=== PATIENT | female | born 2000 | race Caucasian/White ===

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

== ENCOUNTER 2022-02-20 10:55 | Outpatient (RCR) | payer OTHER, SELFPAY ==
[2022-02-20 11:13] VITALS: BMI 18.9
== END 2022-05-08 11:45 | disposition home or self-care (01) ==
LOC: ANHDMC 10:55
PROVIDERS: PCP Nurse Practitioner; Referring Provider Nurse Practitioner; Visit Provider Nurse Practitioner
DX: R63.4 Abnormal weight loss (principal); Z71.3 Dietary counseling and surveillance
CPT/HCPCS: 97802

== ENCOUNTER 2023-06-14 11:18 | Outpatient (CLI) | payer OTHER, SELFPAY ==
--- NOTE | ~2023-06-14 | US_ITS ---
EXAMINATION: US transvaginal DATE: 06/14/2023 11:39 INDICATION: Pelvic pain TECHNIQUE: Multiple endovaginal sonographic images of the pelvis were obtained. COMPARISON: None. FINDINGS: The retroverted uterus measures 5.7 x 3.2 x 4.2 cm. The endometrial complex measures 7 mm. The right ovary measures 2.4 x 2.9 x 1.7 cm. There are multiple tiny follicles in the right ovary. Th e left ovary measures 2.1 x 2.0 x 1.4 cm. There is normal vascular flow in the ovaries. There is a sm all amount of likely physiologic free fluid in the pelvis. IMPRESSION: 1. No sonographic correlate for the patient's symptoms. Reviewed, dictated and finalized at location F.
== END 2023-06-14 11:19 ==
LOC: MICIMG 11:19
PROVIDERS: PCP Nurse Practitioner; Visit Provider Nurse Practitioner
DX: R10.2 Pelvic and perineal pain (principal)
CPT/HCPCS: 76830

== ENCOUNTER 2023-10-26 11:37 | Emergency (ER) | payer OTHER, SELFPAY ==
[2023-10-26 12:02] VITALS: BP 111/68; PULSE 105; RESP 18; TEMP 36.8; O2SAT 99
[2023-10-26 12:38] LABS: Appearance Urine Cloudy (Clear); Bacteria Urine 4+ /hpf; Bilirubin Urine Negative (Negative); Blood Urine Trace (Negative); Color Urine Dark Yellow (Yellow); Glucose Urine UA Negative (Negative); Ketones Urine 3+ mg/dL (Negative); Leukocyte Esterase Ur 1+ LEU/UL (Negative); Nitrate Urine Positive (Negative); Non Pathogenic Casts 0-2; Protein Urine 1+ mg/dL (Negative); RBC Urine 0-2 /hpf (0-2); Specific Grav Ur 1.025 (1.001-1.035); Squamous Epithelial Cell Urine Many /hpf (Few); WBC Urine 21-50 /hpf
[2023-10-26 12:42] LABS: Basophils Absolute Auto 0.1 K/mm3 (0.0-0.1); Basophils Percent Auto 0.7 % (0.2-1.2); Eosinophils Percent Auto 0.5 % (0-4.4); Hematocrit 38.6 % (37.0-47.0); Hemoglobin 12.4 g/dL (12.0-15.0); Immature Granulocyte Absolute 0.04 K/mm3 (0.00-0.031); Immature Granulocyte Percent A 0.5 % (0-0.5); Lymphocytes Absolute Auto 1.09 K/mm3 (0.9-3.2); Lymphocytes Percent Auto 12.4 % (18.3-44.2); Mean Corpuscular HGB Conc 32.1 g/dl (32-36); Mean Corpuscular Hemoglobin 27.1 pg (26-34); Mean Corpuscular Volume 84.3 fl (80-100); Mean Platelet Volume 9.7 fl (7.4-10.4); Monocytes Absolute Auto 1.1 K/mm3 (0.1-0.6); Monocytes Percent Auto 12.6 % (2.6-8.5); Neutrophils Absolute Auto 6.5 K/mm3 (1.3-6.7); Neutrophils Percent Auto 73.3 % (45.5-73.1); Platelet Count Result 249 k/mm3 (150-375); Red Blood Count 4.58 M/mm3 (4.2-5.4); Red Cell Distribution Width 11.9 % (11.5-14.5); White Blood Count 8.8 K/mm3 (4.5-10.0)
[2023-10-26 12:44] LABS: Add Urine Microscopic? YES; Alanine Aminotransferase 10 U/L (6-35); Albumin Level 4.7 g/dL (3.5-5.1); Alkaline Phosphatase 66 U/L (38-126); Anion Gap 11 mmol/L (8-16); Aspartate Amino Transferase 17 U/L (14-36); Bilirubin,Total 1.3 mg/dL (0.2-1.3); Blood Urea Nitrogen 9 mg/dL (7-17); Calcium 9.3 mg/dL (8.4-10.2); Carbon Dioxide 24 mmol/L (22-30); Chloride 102 mmol/L (98-107); Estimated CRCL calculation 118 ml/min; Estimated Glomerular Filt Rate > 60; Glucose 93 mg/dL (65-110); Lipase 40 U/L (23-300); Potassium 3.9 mmol/L (3.4-5.0); Sodium 137 mmol/L (137-145)
[2023-10-26 15:06] LABS: Appearance Urine Cloudy (Clear); Bacteria Urine 3+ /hpf; Bilirubin Urine 2+ (Negative); Blood Urine Negative (Negative); Color Urine Dark Yellow (Yellow); Glucose Urine UA Negative (Negative); Ketones Urine 4+ mg/dL (Negative); Leukocyte Esterase Ur 1+ LEU/UL (Negative); Nitrate Urine Negative (Negative); Non Pathogenic Casts 0-2; Protein Urine 1+ mg/dL (Negative); RBC Urine 0-2 /hpf (0-2); Specific Grav Ur 1.032 (1.001-1.035); Squamous Epithelial Cell Urine Many /hpf (Few); WBC Urine 51-100 /hpf; pH Urine 5.5 (5.0-9.0)
[2023-10-26 15:08] LABS: Add Urine Microscopic? YES
--- NOTE | 2023-10-26 15:54 | ED.ABDPAIN ---
HPI - Abdominal Pain General Chief Complaint: Abdominal Pain Stated Complaint: right side pain Time Seen by Provider: 10/26/23 14:25 History of Present Illness HPI narrative: Patient is a 23-year-old female presenting with abdominal pain. Patient states the last several days she has had some right-sided abdominal pain that goes into her right flank. States that it started with pain in her right flank. States that she was diagnosed with a UTI a couple of weeks ago but she did not take the antibiotics because it made her nauseous. States that she had a fever of 101 several days ago and then yesterday had a fever of 102. States that she has had no appetite but no vomiting. Denies diarrhea or constipation, vaginal bleeding or discharge, chest pain, cough, shortness of breath. Related Data Allergies Allergy/AdvReac Type Severity Reaction Status Date / Time lactose Allergy Other Verified 10/26/23 14:16 Review of Systems Review of Systems: All systems reviewed & are unremarkable except as noted in HPI and below PMFSH Past Medical History Medical History Hernia, paraesophageal Nausea No active medical problems Surgical History Surgical History Hx of colonoscopy Hx of esophagogastroduodenoscopy Hx of tonsillectomy Hx of wisdom tooth extraction Family History Family History Grandparent Diabetes mellitus Father No problems noted. Mother No problems noted. Social History Social History Smoking status: Never smoker Alcohol intake: current Drinks per week: 4 Substance use: never Substance use type: does not use Living arrangements: with family Spiritual care concerns: No Exam Narrative: GENERAL: Well-appearing, in no acute distress HEAD: Normocephalic, atraumatic. EYES: PERRLA and EOMI. ENT: Nares clear, no rhinorrhea or epistaxis. Mucous membranes moist. NECK: Supple. CHEST: Clear to auscultation. No respiratory distress. HEART: Regular rate and rhythm. No murmur heard ABDOMEN: Soft, nontender, nondistended EXTREMITIES: Normal range of motion. SKIN: Warm, dry, no rash. NEURO: Alert and oriented x3. PSYCH: Normal mood and affect. Course Vital Signs Vital signs: Vital Signs Temperature 98.2 F 10/26/23 12:02 Pulse Rate 105 H 10/26/23 12:02 Respiratory Rate 18 10/26/23 12:02 Blood Pressure 111/68 10/26/23 12:02 Pulse Oximetry 99 10/26/23 12:02 Temperature 98.2 F 10/26/23 12:02 Pulse Rate 105 H 10/26/23 12:02 Respiratory Rate 18 10/26/23 12:02 Blood Pressure 111/68 10/26/23 12:02 Pulse Oximetry 99 10/26/23 12:02 MDM - Abdominal Pain MDM Narrative Medical decision making narrative: 23-year-old female presenting with abdominal pain. Vitals stable. Exam is unremarkable. Her abdomen is soft and benign. Blood work is unremarkable. UA is contaminated but concerning for infection. States that she was diagnosed with UTI several weeks ago and she never took the antibiotics as they made her nauseous. It appears that she had been prescribed Bactrim. Will start her on Keflex and advised that she complete the antibiotics as prescribed. She has nausea medicine at home that she can take. Advised PCP follow-up. Appropriate return precautions given. Discharged in stable condition. Differential Diagnosis Differential diagnosis: Likely abdominal pain and other ( UTI, flank pain) Medical Records Attestation: I reviewed the patient's medical records. Lab Data Attestation: I reviewed the patient's lab results. 10/26/23 12:21 10/26/23 12:21 Labs: Lab Results 10/26/23 10/26/23 Range/Units 12:21 14:53 WBC 8.8 (4.5-10.0) K/mm3 RBC 4.58 (4.2-5.4) M/mm3 Hgb 12.4
== END 2023-10-26 16:25 | disposition home or self-care (01) ==
PROVIDERS: Emergency Medicine; Emergency Provider Emergency Medicine; PCP Nurse Practitioner
DX: N39.0 Urinary tract infection, site not specified (principal)
CPT/HCPCS: 36415; 80053; 81001; 81025; 83690; 85025; 87077; 87086; 87186; 99283

== ENCOUNTER 2025-04-30 11:00 | Emergency (ER) | payer OTHER, SELFPAY ==
--- NOTE | ~2025-04-30 | XR_ITS ---
HISTORY: pain with trauma COMPARISON: None TECHNIQUE: 3 views of the left foot were performed FINDINGS: No acute fracture or dislocation is appreciated. No significant degenerative disease is noted. The base of the fifth metatarsal is intact. No calcaneal spur is noted. No significant soft tissue swelling is present. IMPRESSION: Unremarkable radiographic evaluation of the left foot, as detailed above. Reviewed, dictated and finalized at location A.
--- OUTSIDE RECORDS SUMMARY | 2025-04-30 11:03 | XMS_ITS | Encounter Summary ---
Author Organization [facility] Address [address] [place] [address] Care Team Providers Care Dry Can Tender Name Role Phone Sue Boyer NP Primary Care Provider +1 [phone] Encounter Details Date Type Department Care Team (Latest Contact Info) Description 09/09/2024 Oramed [employer] Message Enc [facility] Medical [facility]ty [facility] [place] [address] [place] [address] Sue Boyer NP [address] [place] [address] blood test results Social History Tobacco Use Types Packs/Day Years Used Date Smoking Tobacco: Never Passive Smoke Exposure: Never Smokeless Tobacco: Never Alcohol Use Standard Drinks/Week Comments Not Currently 0 (1 standard drink = 0.6 oz pur e alcohol) PHQ-2 Answer Date Recorded Patient Health Questionnaire-2 Score 4 09/08/2024 Comments No Sex and Gender Information Value Date Recorded Sex Assigned at Female 11/09/2024 9:42 AM MANUAL MACHINIST Legal Sex Female 7:30 PM CDT Gender Identity Female 11/22/2024 10:25 AM MANUAL MACHINIST Sexual Orientation Straight 11/22/2024 10 :25 AM MANUAL MACHINIST documented as of this encounter Plan of Treatment Upcoming Encounters Date Type Department Care Team (Late st Contact Info) Description 07/04/2025 10:20 AM CDT Office Visit [facility] Medical [facility] [place] [address] [place] [address] Sue Boyer NP [address] [place] [address] documented as of this encounter Visit Diagnoses Not on filedocumented in this encounter Additional Health Concerns Assessment Noted Time PHQ-9 Depression Total Score: 17 024 11:07 AM MANUAL MACHINIST documented as of this encounter Care Teams Dry Can Tender Relationship Specialty Start Date End Date Sue Boyer, LANDSCAPING SUPERVISOR [address] [facility] [address] [place] [address] PCP - General NURSE PRACTITIONER 05/10/24 documented as of this encounter
--- OUTSIDE RECORDS SUMMARY | 2025-04-30 11:03 | XMS_ITS | Encounter Summary ---
Author Organization [facility] Address [address] [place] [address] Care Team Providers Care Photographic Enlarger Operator Name Role Phone Sue Boyer FACILITIES OPERATIONS TECHNICIAN Primary Care Provider +1 [phone] Encounter Details Date Type Department Care Team (Late st Contact Info) Description 11/15/2024 MyCNarrativet Message Enc [facility] [address] [place], [place] [id number] Lexie Baca, ANP-BC [facility]. [facility] [address] [place], [place] [id number] Test results Social History Tobacco Use Types Packs/Day Years Used Date Smoking Tobacco: Never Passive Smoke Exposure: Never Smokeless Tobacco: Never Alcohol Use Standard Drinks/Week Comments Not Currently 0 (1 standard drink = 0.6 oz pur e alcohol) PHQ-2 Answer Date Recorded Patient Health Questionnaire-2 Score 6 11/08/2024 Comments No Sex and Gender Information Value Date Recorded Sex Assigned at Female 11/09/2024 9:42 AM SERVICE TECH/WELDER Legal Sex Female 7:30 PM CDT Gender Identity Female 11/22/2024 10:25 AM SERVICE TECH/WELDER Sexual Orientation Straight 11/22/2024 10 :25 AM SERVICE TECH/WELDER documented as of this encounter Plan of Treatment Upcoming Encounters Date Type Department Care Team (Late st Contact Info) Description 07/04/2025 10:20 AM CDT Office Visit [facility] Medical [facility] Multispecialty [facility] [place] - [address] [place], [place] [id number] Sue Boyer, FACILITIES OPERATIONS TECHNICIAN [address] [facility] [address] [place] [address] documented as of this encounter Visit Diagnoses Not on filedocumented in this encounter Additional Health Concerns Assessment Noted Time PHQ-9 Depression Total Score: 22 025 12:03 PM SERVICE TECH/WELDER documented as of this encounter Care Teams Photographic Enlarger Operator Relationship Specialty Start Date End Date Sue Boyer, FACILITIES OPERATIONS TECHNICIAN [address] [facility] [address] [place] [address] PCP - General NURSE PRACTITIONER 05/10/24 documented as of this encounter
--- OUTSIDE RECORDS SUMMARY | 2025-04-30 11:03 | XMS_ITS | Encounter Summary ---
Author Organization [facility] Address [address] [place] [address] Care Team Providers Care Twisting Department End Finder Name Role Phone Sue Boyer BRACER Primary Care Provider +1- [phone] Encounter Details Date Type Department Care Team (Late st Contact Info) Description 09/29/2024 MyChart Message Enc [facility] Group Mult[facility]pecialty Care - [place] [address] [place] [address] Sue Boyer BRACER [address] [place] [address] glucometer Social History Tobacco Use Types Packs/Day Years Used Date Smoking Tobacco: Never Passive Smoke Exposure: Never Smokeless Tobacco: Never Alcohol Use Standard Drinks/Week Comments Not Currently 0 (1 standard drink = 0.6 oz pur e alcohol) PHQ-2 Answer Date Recorded Patient Health Questionnaire-2 Score 4 09/08/2024 Comments No Sex and Gender Information Value Date Recorded Sex Assigned at Female 11/09/2024 9:42 AM ELECTRICAL LINE WORKER Legal Sex Female 7:30 PM CDT Gender Identity Female 11/22/2024 10:25 AM ELECTRICAL LINE WORKER Sexual Orientation Straight 11/22/2024 10 :25 AM ELECTRICAL LINE WORKER documented as of this encounter Progress Notes * Aleyda Hensley MA - 09/30/2024 7:24 AM CST yes TRICAL LINE WORKER documented in this encounter Plan of Treatment Upcoming Encounters Date Type Department Care Team (Late st Contact Info) Description 07/04/2025 10:20 AM CDT Office Visit [facility] Medical Group [facility] - [place] [address] [place] [address] Sue Boyer, BRACER [address] [place] [address] documented as of this encounter Visit Diagnoses Not on filedocumented in this encounter Additional Health Concerns Assessment Noted Time PHQ-9 Depression Total Score: 17 024 11:07 AM ELECTRICAL LINE WORKER documented as of this encounter Care Teams Twisting Department End Finder Relationship Specialty Start Date End Date Sue Boyer BRACER [address] [place] [address] PCP - General NURSE PRACTITIONER 05/10/24 documented as of this encounter
--- OUTSIDE RECORDS SUMMARY | 2025-04-30 11:03 | XMS_ITS | Clinical Summary ---
Author Organization [facility] Address [address] [place] [address] Care Team Providers Care Manager Print Name Role Phone Sue Boyer NP Primary Care Provider +1- [phone] Allergies Active Allergy Reactions Criticality Noted Date Comments Lactose Other (See comments) Low 08/05/2019 Bloody stools Medications promethazine (PHENERGAN) 25 mg tablet 1 Active norethindrone-e.es tradioL-iron (Lo Loestrin Fe) 1 mg-10 mcg (24)/10 mcg (2) tablet Lo Loestrin Fe 1 mg-10 mcg (24)/10 mcg (2) tablet TAKE 1 TABLET BY MOUTH EVERY DAY Active calcium carbonate (TUMS) 500 mg (200 mg elemental) chewable tablet Take 1 tablet by mouth daily Active cyanocobalamin (Vitamin B-12) 1,000 mcg/mL injection INJECT 1 ML IN THE MUSCLE EVERY 30 DAYS 4 Active albuterol HFA (PROVENTIL HFA,VENTOLIN HFA,PROAIR HFA) 90 mcg/actuation inhalerIndications :Chest tightness Inhale 2 puffs every 6 (six) hours as needed for wheezing Cough or chest tightness 1 each 4 Active ondansetron ODT (ZOFRAN-ODT) 4 mg disintegrating tablet Take 1 tablet (4 mg total) by mouth every 6 (six) hours as needed 4 Active hydrOXYzine (ATARAX) 50 mg tablet Take 1 tablet (50 mg total) by mouth every 8 (eight) hours as needed for anxiety 90 tablet 5 Active mirtazapine (REMERON) 15 mg tablet Take 1 tablet (15 mg total) by mouth nightly 30 tablet 5 05/21/20 25 Active Active Problems Problem Noted Date Diagnosed Date Current moderate episode of major depressive disorder without prior episode 02/11/2025 Mild restricting type anorexia nervosa 5 Iron deficiency anemia, unspecified 04/17/2023 Routine sports physical exam 06/07/2021 Assessment & Plan (06/07/2021 9:31 AM CDT): Patient is cleared to participate in sports. Copy of physical examination form retained for our records and one given to the patient. Recommendations, follow-up reviewed with patient. Patient verbalized understanding. Patient advised to return for follow-up as needed. If you have any questions about your care, call the [facility] at [phone] during business hours. 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 [address] [place] [address] [address] [place] [address] Michelle Walls MD Mild restricting type anorexia nervosa (Primary Dx); Current moderate episode of major depressive disorder without prior episode (HCC) 03/24/2025 8:30 AM CDT Office Visit [facility] [address] [place] [id number] Michelle Walls MD Mild restricting type anorexia nervosa (Primary Dx); Unspecified mood disorder 02/11/2025 2:00 PM CDT Office Visit [facility] [address] [facility] [address] [place] [phone] Michelle Walls MD Mild restricting type anorexia nervosa (Primary Dx); Unspecified mood disorder from Last 3 Months Surgical History Surgery Date Site/Laterality Comments TONSILLECTOMY age 17 years UPPER GASTROINTESTINAL ENDOSCOPY COLONOSCOPY TONSILLECTOMY AND ADENOIDECTOMY Medical History Medical History Date Comments Hematochezia Abdominal pain, lower 04/14/2019 Diarrhea GERD (gastroesophageal reflux disease) Family History Medical History Relation Name Comments Hypothyroidism Maternal Grandfather Hypothyroidism Maternal Grandmother Celiac disease Mother Colon cancer Mother Hypothyroidism Mother Sinusitis Mother Allergic rhinitis Mother's Brother Relation Name Status Comments Maternal Grandfather Maternal Grandmother Mother Mother's Brother Social History Tobacco Use Types Packs/Day Years Used Date Smoking Tobacco: Never Smokeless Tobacco: Never Alcohol Use Standard Drinks/Week Comments Not Currently 0 (1 standard drink = 0.6 oz pur e alcohol) AUDIT-C Answer Date Recorded Q1: How often do you have a drink containing alc ohol? Never 06/07/2021 Q2: How many drinks containi ng alcohol do you have on a typical day when you are drinking? 1 or 2 06/07/2021 Q3: How often do you have six or more drinks on one occasion? Never 06/07/2021 Comments No Sex and Gender Information Value Date Recorded Sex Assigned at Not on file Legal Sex Female 9:36 AM INSET CUTTER Gender Identity Not on file Sexual Orientation Not on file History Length Weight Head Circum Date/Time Gestation Age D/C Weight APGARs Delivery Method Feeding 7 lb 2 oz (3.232 kg) 2002 Term, similac Obstetrics History Last Filed Vital Signs Vital Sign Reading Time Taken Comments Blood Pressure 127/90 04/21/2025 11:37 AM CDT Pulse 82 03/24/2025 9:02 AM CDT Temperature 37.4 C (99.3 F) 08/31/2024 12:45 PM INSET CUTTER Respiratory Rate 15 08/31/2024 12:45 PM INSET CUTTER Oxygen Saturation 99% 08/31/2024 12:45 PM INSET CUTTER Inhaled Oxygen Concentration - - Weight 56 kg (123 lb 6.4 oz) 04/21/2025 11:37 AM CDT Height 165.1 cm (5' 5) 04/21/2025 11:37 AM CDT Body Mass Index 20.53 04/21/2025 11:37 AM CDT Plan of Treatment Health Maintenance Due Date Last Done Comments Cervical Cancer Screening 2002 Depression Screening 2002 Hepatitis C Screening 2002 DTaP/Tdap/Td Vaccine (1 - Tdap) 2013 Varicella Vaccines (1 of 2 - 13+ 2-dose series) 2014 HPV Vaccines (1 - 3-dose series) 2017 Meningococcal B Vaccine (1 of 2 - Standard) 2018 Hepatitis B Screening 02/15/2020 Regular Well Visit/Exam 18-64 02/15/2020 Chlamydia and Gonorrhea (GC/CT) Screening 04/13/2020 04/13/2019 Pneumococcal vaccine <65 (1 of 2 - PCV) 2021 Zoster Vaccine (1 of 2) 2021 Influenza Vaccine (#1) 2025 Procedures Procedure Name Priority Date/Time Associated Diagnosis Comments N. GONORRHOEAE/C. TRACHOMATIS AMPLIFICATION TEST Routine 04/13/2019 9:23 PM CDT from Last 3 Months or Most Recently Relevant to Health Maintenance Results * N. gonorrhoeae/C. trachomatis amplification test Urine (04/13/2019 9:23 PM CDT) Report Final Report: Negative for: Chlamydia trachomatis rRNA Negative for: Neisseria gonorrhoeae rRNA [facility] Comment:Testing performed by : [facility], [address] [facility], [place]., [address] Urine 04/13/2019 9:23 PM CDT 04/13/2019 10:59 PM CDT Narrative [facility] - 04/14/2019 12:58 PM CDT Testing performed by the [employer] APTIMA Combo 2 Assay. This nucleic acid amplification test (NAAT) detects ribosomal RNA (rRNA) from Chlamydia trachomatis and Neisseria gonorrhoeae using target capture,and Rn Endoscopy-Mediated Amplification (TMA). This test is approved by the [place] Food and Drug Administration for endocervical, vaginal, and male urethral swab specimens, in addition to male and female urine specimens. The performance characteristics for these specimen types have been verified by the [facility].The performance characteristics of this assay for pharyngeal and rectal specimens collected from cervical swab collection devices have been validated and verified by the [facility]. Verification studies support a lack of cross reactivity with other Neisseria species considered normal oropharyngeal bacterial cierra. Rectal swab specimens containing excess stool may be inhibitory and result in false negatives for Chlamydia trachomatis or Neisseria gonorrhoeae. The performance characteristics of this test have not been evaluated in women or individuals less than 16 years of age. Jill Rebolledo MD LAB MICROBIOLOGY - GENERAL ORDERABLES Final Result [facility] Department [place] [address] from Last 3 Months or Most Recently Relevant to Health Maintenance Insurance [facility] CHOICE PLUS [facility] CHOICE PLUS [facility] CHOICE PLUS [facility] CHOICE PLUS Member Subscriber Plan / Payer (Ef fective 2021-Present) Name:Princess Rose Relation to Subscriber:Self Name:Princess Rose Payer ID:[id number] (NAIC) Type:[facility] HMO/PPO Address: [address] [facility] Advance Directives For more information, please contact: [phone] * Full Code (Latest Code Status on File) Date Activated Date Inactivated Comments 04/13/2019 7:20 PM 04/14/2019 9:49 PM Care Teams Manager Print Relationship Specialty Start Date End Date Sue Boyer NP [address] [facility] [address] [place] [address] PCP - General Internal Medicine 11/02/24
--- OUTSIDE RECORDS SUMMARY | 2025-04-30 11:03 | XMS_ITS | Encounter Summary ---
Author Organization [facility] Address [address] [place] [address] Care Team Providers Care Mechanical Process Engineer Name Role Phone Sue Boyer NP Primary Care Provider +1- [phone] Encounter Details Date Type Department Care Team (Late st Contact Info) Description 11/12/2024 MyChart Message Enc [facility] Medical [facility] Multispecialty Care - [place] [address] [place] [address] Sue Boyer NP [address] [place] [address] SLBMI Social History Tobacco Use Types Packs/Day Years Used Date Smoking Tobacco: Never Passive Smoke Exposure: Never Smokeless Tobacco: Never Alcohol Use Standard Drinks/Week Comments Not Currently 0 (1 standard drink = 0.6 oz pur e alcohol) PHQ-2 Answer Date Recorded Patient Health Questionnaire-2 Score 6 11/08/2024 Comments No Sex and Gender Information Value Date Recorded Sex Assigned at Female 11/09/2024 9:42 AM SCOOP FILLER Legal Sex Female 7:30 PM CDT Gender Identity Female 11/22/2024 10:25 AM SCOOP FILLER Sexual Orientation Straight 11/22/2024 10 :25 AM SCOOP FILLER documented as of this encounter Plan of Treatment Upcoming Encounters Date Type Department Care Team (Late st Contact Info) Description 07/04/2025 10:20 AM CDT Office Visit [facility] Medical [facility] - [place] [address] [place] [address] Sue Boyer NP [address] [place] [address] documented as of this encounter Visit Diagnoses Not on filedocumented in this encounter Additional Health Concerns Assessment Noted Time PHQ-9 Depression Total Score: 22 025 12:03 PM SCOOP FILLER documented as of this encounter Care Teams Mechanical Process Engineer Relationship Specialty Start Date End Date Sue Boyer, PRODUCTION SUPERVISOR TRAINEE [address] [facility] [address] [place] [address] PCP - General NURSE PRACTITIONER 05/10/24 documented as of this encounter
--- OUTSIDE RECORDS SUMMARY | 2025-04-30 11:03 | XMS_ITS | Encounter Summary ---
Author Organization [facility] Address [address] [place] [address] Care Team Providers Care Public Address Announcer Name Role Phone Sue Boyer NP Primary Care Provider +1 [phone] Encounter Details Date Type Department Care Team (Late st Contact Info) Description 12/30/2024 MyChart Message Enc [facility] Medical [facility] Multispecialty [facility] [address] [place] [address] Sue Boyer NP [address] [place] [address] blood work Social History Tobacco Use Types Packs/Day Years Used Date Smoking Tobacco: Never Passive Smoke Exposure: Never Smokeless Tobacco: Never Alcohol Use Standard Drinks/Week Comments Not Currently 0 (1 standard drink = 0.6 oz pur e alcohol) PHQ-2 Answer Date Recorded Patient Health Questionnaire-2 Score 5 12/13/2024 Comments No Sex and Gender Information Value Date Recorded Sex Assigned at Female 11/09/2024 9:42 AM CORPORATE TREASURY ANALYST Legal Sex Female 7:30 PM CDT Gender Identity Female 11/22/2024 10:25 AM CORPORATE TREASURY ANALYST Sexual Orientation Straight 11/22/2024 10 :25 AM CORPORATE TREASURY ANALYST documented as of this encounter Plan of Treatment Upcoming Encounters Date Type Department Care Team (Late st Contact Info) Description 07/04/2025 10:20 AM CDT Office Visit [facility]pec[facility]ty Care - [place] [address] [place] [address] Sue Boyer NP [address] [place] [address] documented as of this encounter Visit Diagnoses Not on filedocumented in this encounter Additional Health Concerns Assessment Noted Time PHQ-9 Depression Total Score: 19 025 12:53 PM CORPORATE TREASURY ANALYST documented as of this encounter Care Teams Public Address Announcer Relationship Specialty Start Date End Date Sue Boyer, WIRE STEWARD [address] [facility] [address] [place] [address] PCP - General NURSE PRACTITIONER 05/10/24 documented as of this encounter
--- OUTSIDE RECORDS SUMMARY | 2025-04-30 11:03 | XMS_ITS | Encounter Summary ---
Author Organization [facility] Address [address] [place] [address] Care Team Providers Care Six Sigma Black Trainer Name Role Phone Sue Boyer NP Primary Care Provider +1 [phone] Encounter Details Date Type Department Care Team (Late st Contact Info) Description 01/14/2025 MyChart Message [facility] - [place] [address] [place] [address] Sue Boyer NP [address] [place] [address] UA Social History Tobacco Use Types Packs/Day Years Used Date Smoking Tobacco: Never Passive Smoke Exposure: Never Smokeless Tobacco: Never Alcohol Use Standard Drinks/Week Comments Not Currently 0 (1 standard drink = 0.6 oz pur e alcohol) PHQ-2 Answer Date Recorded Patient Health Questionnaire-2 Score 5 12/13/2024 Comments No Sex and Gender Information Value Date Recorded Sex Assigned at Female 11/09/2024 9:42 AM AIR QUALITY ENGINEER Legal Sex Female 7:30 PM CDT Gender Identity Female 11/22/2024 10:25 AM AIR QUALITY ENGINEER Sexual Orientation Straight 11/22/2024 10 :25 AM AIR QUALITY ENGINEER documented as of this encounter Plan of Treatment Upcoming Encounters Date Type Department Care Team (Late st Contact Info) Description 07/04/2025 10:20 AM CDT [facility] - [place] [address] [place] [address] Sue Boyer NP [address] [place] [address] documented as of this encounter Visit Diagnoses Not on filedocumented in this encounter Additional Health Concerns Assessment Noted Time PHQ-9 Depression Total Score: 19 025 12:53 PM AIR QUALITY ENGINEER documented as of this encounter Care Teams Six Sigma Black Trainer Relationship Specialty Start Date End Date Sue Boyer, DRILL RUNNER [address] [place] [address] PCP - General NURSE PRACTITIONER 05/10/24 documented as of this encounter
--- OUTSIDE RECORDS SUMMARY | 2025-04-30 11:03 | XMS_ITS | Encounter Summary ---
Author Organization [facility] Address [address] [place] [address] Care Team Providers Care Head Of Measurement & Insights Name Role Phone Sue Boyer NP Primary Care Provider +1- [phone] Encounter Details Date Type Department Care Team (Late st Contact Info) Description 04/30/2025 Telephone [facility] [place] [address] [place] [address] Shivani Edmondson MA Social History Tobacco Use Types Packs/Day Years [...] on file Legal Sex Female 9:36 AM RESISTANCE WELDER Gender Identity Not on file Sexual Orientation Not on file documented as of this encounter Miscellaneous Notes * Telephone Encounter - Shivani Edmondson MA - 04/30/2025 7:30 AM CDT LMOM to patient to inform them that [facility] is closed today; redirected to [place] or [facility] [place]. documented in this encounter Plan of Treatment Not on file documented as of this encounter Visit Diagnoses Not on filedocumented in this encounter Care Teams Head Of Measurement & Insights Relationship Specialty Start Date End Date Sue Boyer NP [address] [facility] [address] [place] [address] PCP - General Internal Medicine 11/02/24 documented as of this encounter
--- OUTSIDE RECORDS SUMMARY | 2025-04-30 11:03 | XMS_ITS | Data Portability ---
Author Organization [facility] [place] Address [address] [place] [address] Assessment Encounter Date Assessment Date Assessment LastModified by Organization Details LastModified Time 05/15/2020 05/15/2020 Annual gynecological exam performed. Patient will come back in a year unless there are new symptoms. [email or web address] Not available 05/15/2020 10:56:02 Plan of Treatment Reminders Order Date Submit Date Provider Last Modified By Organization Details Last Modified Time Details Appointments None recorded. Lab None recorded. Referral None recorded. Procedures None recorded. Surgeries None recorded. Imaging None recorded. Medication Orders Lo Loestrin Fe 1 mg-10 mcg (24)/10 mcg (2) tablet 2019 020 INTERFACE [id number], [address], [place], [place], [id number], 0 11:18:19 Patient TargetsNo targets recorded. Patient InstructionsNo instructions recorded. Reason for Referral None Reported. Problems Name Problem SNOMED Code Status Onset Date Resolution Date Notes Provider Name and Address Organization Details Recorded Time Finding of general energy 290217462 Active 2018 Fatigue;Re corded Elsewhere: No Locatio n: [facility]: EHR Chroni c: N Practice ID: 0001 Billa ble Time: 01:30:00 PM Not Available [facility] 0 21:26:08 Uses combined oral contracep tion 932728115 Active 2018 Encounter for surveillan ce of contracept albina pills;Jostin rded Elsewhere: No Locatio n: [facility]: EHR Chroni c: N Practice ID: 0001 Billa ble Time: 01:30:00 PM Not Available [facility] 0 21:26:[address] Concept Active 2017 Encntr for routine child health exam w/o abnormal findings;R ecorded Elsewhere: No Locatio n: [facility]: EHR Chroni c: N Practice ID: 0001 Billa ble Time: 03:00:00 PM Not Available [facility] 0 21:26:09 Finding of menstrual bleeding Active 2017 Menorrhagi a;Recorded Elsewhere: No Locatio n: [facility] rce: EHR Chroni c: N Practice ID: 0001 Billa ble Time: 03:00:00 PM Not Available [facility] 0 21:26:[address] Concept Active 2017 Encntr for internet assessor exam (general) (routine) w/o abn findings;R ecorded Elsewhere: No Locatio n: [facility] rce: EHR Chroni c: N Practice ID: 0001 Billa ble Time: 03:00:00 PM Not Available [facility] 0 21:26:09 Problem Notes None recorded. Procedures Surgical History Date Name Laterality Status Provider Name and Address Organization Details Recorded Time Tonsillectomy completed [facility] 05/15/2020 10:58:17 Imaging Results None recorded. Procedure Notes None recorded. Medical Equipment None Reported. Allergies No known drug allergies Medications Name Sig Start Date Stop Date Status Note LastModified by Organization Details LastModified Time amoxicillin 500 mg capsule 05/15 completed Not Available Not Available Not Available azithromycin 250 mg tablet TK 2 TS PO ON DAY 1, THEN TK 1 T PO D FOR 4 DAYS active Not Available Not Available No t Available Lidocaine Viscous 2 % mucosal solution GARGLE AND SPIT 5 ML BY MOUTH FOUR TIMES DAILY NEEDED FOR PAIN active Not Available Not Available No t Available benzonatate 200 mg capsule 05/15 completed Not Available Not Available Not Available hydrocodone 5 mg-acetamino phen 325 mg tablet 05/15 completed Not Available Not Available Not Available clindamycin HCl 150 mg capsule TK ONE C PO Q 6 H TAT active Not Available Not Available No t Available tramadol 50 mg tablet TK 1 T PO Q 6 H PRN P active Not Available Not Available No t Available Microgestin FE 11/15 (28) 1 mg-20 mcg (21)/75 mg (7) tablet TAKE 1 TABLET BY MOUTH EVERY DAY active Not Available Not Available No t Available azelastine 137 mcg (0.1 %) nasal spray INSTILL ONE SPRAY IN EACH NOSTRIL EVERY 12 HOURS active Not Available Not Available No t Available Lo Loestrin Fe 1 mg-10 mcg (24)/10 mcg (2) tablet TAKE 1 TABLET BY MOUTH EVERY DAY active Not Available Not Available No t Available Vitals Date Recorded Body height Body mass index (BMI) Body mass index (BMI) [Percentile] Per age and sex Body weight Systolic And Diastolic Provider Name and Address Organization Details Last Updated DateTime 05/15/2020 2011.68 cm 0.1 kg/m2 1 % 76311.4 5 g 108/72 mm[Hg] Codi Barnett [facility] 0 10:56:27 Social History None recorded. Functional Status None recorded. Mental Status None recorded. Family History Relationship Description Onset Age of this Age Resolved Age Notes LastModified by Organization Details LastModified Time Father Hypercholest erolemia [email or web address] Not available 2019 10:57:00 Father Hypertensive disorder [email or web address] Not available 2019 10:57:52 Mother Anemia [email or web address] Not available 10:57:11 Mother Cyst of ovary [email or web address] Not available 2019 10:57:25 Mother Disorder of thyroid gland [email or web address] Not available 2019 10:57:31 Maternal Grandmother Disorder of thyroid gland [email or web address] Not available 2019 10:57:38 Maternal Grandmother Hypertensive disorder [email or web address] Not available 2019 10:57:52 Maternal Grandmother Diabetes mellitus [email or web address] Not available 2019 10:58:04 Paternal Grandmother Diabetes mellitus [email or web address] Not available 2019 10:58:04 Notes:Father: High cholester ol, Hypertension Maternal grandmother: Diabetes mellitus, Thyroid disease, Hypertension Mother: ovarian cyst, Anemia, Thyroid disease Paternal grandmother: Diabetes mellitus Medical History Condition Response Allergies (Food, seasonal, environmental ) N Other N Drug/Latex Allergies/Reactions N Breast Cancer N Blood Transfusion N Dermatologic Disorders N Lung Disease N Defects or Inherited Disease N Breast Problem N Gestational Diabetes N Hematologic disorders N Anesthesia Complications N History of STI N Deep Vein Thrombosis N Polycystic ovary syndrome N Anxiety Disorder N Autoimmune disease N Arthritis N Polyps N Infertility N Acid Reflux (GERD) N History of abnormal pap N Cancer N Varicosities N Stroke N Neurologic/Epilepsy N Endometriosis N High Cholesterol N Fibromyalgia N Headaches N Kidney Disease N Heart Problems N Thyroid Problems N Kidney or Bladder Problems N GI Problems N Eating Disorder N Anemia N Art (IVF or FET) N Psychiatric Illness N Ovarian Cancer N Diabetes N Pulmonary (TB, Asthma) N Hepatitis/Liver Disease N Eczema N Urinary Tract Infection N Abuse/Domestic Violence N Asthma N Trauma/Violence N Depression/ depression N Heart Disease N Pre-Eclampsia N Hypertension N Osteoporosis N Thrombophilias N Gynecological History Statement/Question Response Current Control Method BCPs Date of LMP 05/14/2020 Obstetrics History GPAL:G 0 P 0 0 0 0 Past Encounters Encounter ID Performer Location Encounter Start Date Encounter Closed Date Diagnosis/Indication Diagnosis SNOMED-CT Code Diagnosis ICD10 Code Diagnosis Note [id number] [facility] [address] [address] 05/15/2020 10:41:59 05/15/2020 11:32:43 Gynecologic examination 15763865 Z01.419 Z30.8 Take Calcium with Vitamin D 1200mg daily if not receiving in daily diet. It is strongly advised to have an annual flu shot and up can obtain at most pharmacies . If you have not had a TDap shot in the last 10 years you should obtain one as well. Discussed with patient & provided with informatio n regarding Gardisil vaccine to prevent the 4 strains for HPV that cause cervical cancer. Encourage safe sexual practices, to use condoms and limit partners if not already in a monogamous relationsh ip. Do monthly self breast exams. BRCA testing is now available for patients with strong genetic history of female cancer. If interested contact the office. Engage in daily exercise of low impact aerobic exercise 45-60 minutes 4-5 times weekly. Avoid tobacco, illicit drugs, and alcohol. This lifestyle behavior pattern will lead to less health conditions and longer life span. If BMI greater than 25 weight watchers or dietary consult advised. Pap smear is not recommende d prior to the age of 21. If you have any concerns, pelvic, or vaginal problems we can discuss testing. Patient received above instructio ns, and questions have been answered. If you have any questions please call or respond to this email. Patient was made aware of the patient portal and may obtain a paper copy of today's plan if desired. Health Concerns Section Related Observation LastModified by Organization Detai ls LastModified Time None Recorded Concern Status LastModified by Organization Details LastModified Time None Recorded Advance Directives Directive None Recorded Payers Insurance Date Sequence Insurance Name Policy Number Policy Darden Covered Member ID Darden Member ID Guarantor Name 05/15/2020 1 [facility] [id number] Emile Rose [id number] Notes Date Note Type Note Provider Name and Address Organization Details Recorded Time 05/15/2020 text/html Annual GYNReport ed bypatient.History:no gynecologic complaints Menstrual cycle:Normal menses Urinary symptoms:No hematuria; No incontinence Vulva:No genital lesion Vagina:Normal vaginal discharge Breast:No breast pain; No breast lump; No nipple discharge Current Contraception:Satisf ied with current contraception; Monogamous relationship; Oral contraceptives Sexual complaints:No sexual complaints; No pain during intercourse; Normal libido Menopausal Symptoms:No menopausal symptoms; Normal vaginal lubrication Psychological symptoms:No depression; No anxiety; No PMDD Preventive measures:Encourage self breast examination; Encourage regular exercise; Encourage no tobacco use Lea Hunter, KENAN- [address], [place], [address], [facility] 05/15/2020 11:19:15 OBGyn Episode No OBEpisode recorded.
--- OUTSIDE RECORDS SUMMARY | 2025-04-30 11:03 | XMS_ITS | Encounter Summary ---
Author Organization [facility] Address [address] [place] [address] Care Team Providers Care Corporate Travel Manager Name Role Phone Sue Boyer COFFEE MAKER Primary Care Provider [phone] Encounter Details Date Type Department Care Team (Latest Contact Info) Description 04/13/2025 [facility] [place] [address] [place] [address] Sue Boyer, COFFEE MAKER [address] [place] [address] CBC W/DIFF AUTOMATED, FERRITIN, FOLIC ACID SERUM, Additional followed-up results: 2 Social History Tobacco Use Types Packs/Day Years Used Date Smoking Tobacco: Never Passive Smoke Exposure: Never Smokeless Tobacco: Never Alcohol Use Standard Drinks/Week Comments Not Currently 0 (1 standard drink = 0.6 oz pur e alcohol) PHQ-2 Answer Date Recorded Patient Health Questionnaire-2 Score 5 12/13/2024 Comments No Sex and Gender Information Value Date Recorded Sex Assigned at Female 11/09/2024 9:42 AM COMPOSING ROOM SUPERVISOR Legal Sex Female 7:30 PM CDT Gender Identity Female 11/22/2024 10:25 AM COMPOSING ROOM SUPERVISOR Sexual Orientation Straight 11/22/2024 10 :25 AM COMPOSING ROOM SUPERVISOR documented as of this encounter Plan of Treatment Upcoming Encounters Date Type Department Care Team (Late st Contact Info) Description 07/04/2025 10:20 AM CDT [facility] [place] [address] [place] [address] Sue Boyer, COFFEE MAKER [address] [facility] [address] [place] [address] documented as of this encounter Visit Diagnoses Not on filedocumented in this encounter Additional Health Concerns Assessment Noted Time PHQ-9 Depression Total Score: 19 025 12:53 PM COMPOSING ROOM SUPERVISOR documented as of this encounter Care Teams Corporate Travel Manager Relationship Specialty Start Date End Date Sue Boyer, COFFEE MAKER [address] [facility] [address] [place] [address] PCP - General NURSE PRACTITIONER 05/10/24 documented as of this encounter
--- OUTSIDE RECORDS SUMMARY | 2025-04-30 11:03 | XMS_ITS | Encounter Summary ---
Author Organization [facility] Address [address] [place] [address] Care Team Providers Care Pastry Cook Name Role Phone Sue Boyer NP Primary Care Provider [phone] Encounter Details Date Type Department Care Team (Late st Contact Info) Description 12/16/2024 MyChart Message Enc [facility] Medical [facility] [place] [address] [place] [address] Sue Boyer NP [address] [place] [address] [facility] Social History Tobacco Use Types Packs/Day Years Used Date Smoking Tobacco: Never Passive Smoke Exposure: Never Smokeless Tobacco: Never Alcohol Use Standard Drinks/Week Comments Not Currently 0 (1 standard drink = 0.6 oz pur e alcohol) PHQ-2 Answer Date Recorded Patient Health Questionnaire-2 Score 5 12/13/2024 Comments No Sex and Gender Information Value Date Recorded Sex Assigned at Female 11/09/2024 9:42 AM RN POSTPARTUM Legal Sex Female 7:30 PM CDT Gender Identity Female 11/22/2024 10:25 AM RN POSTPARTUM Sexual Orientation Straight 11/22/2024 10 :25 AM RN POSTPARTUM documented as of this encounter Plan of Treatment Upcoming Encounters Date Type Department Care Team (Late st Contact Info) Description 07/04/2025 10:20 AM CDT Office Visit [facility] Medical [facility] [place] [address] [place] [address] Sue Boyer NP [address] [place] [address] documented as of this encounter Visit Diagnoses Not on filedocumented in this encounter Additional Health Concerns Assessment Noted Time PHQ-9 Depression Total Score: 19 025 12:53 PM RN POSTPARTUM documented as of this encounter Care Teams Pastry Cook Relationship Specialty Start Date End Date Sue Boyer, ANIMAL SURGEON [address] [facility] [address] [place] [address] PCP - General NURSE PRACTITIONER 05/10/24 documented as of this encounter
--- OUTSIDE RECORDS SUMMARY | 2025-04-30 11:03 | XMS_ITS | Encounter Summary ---
Author Organization [facility] Address [address] [place] [address] Care Team Providers Care Bike Designer Name Role Phone Sue Boyer NP Primary Care Provider [phone] Encounter Details Date Type Department Care Team (Late st Contact Info) Description 12/22/2024 Tembo Studiohart Message Enc [facility] [place] [address] [place] [address] Sue Boyer NP [address] [place] [address] treatment Social History Tobacco Use Types Packs/Day Years Used Date Smoking Tobacco: Never Passive Smoke Exposure: Never Smokeless Tobacco: Never Alcohol Use Standard Drinks/Week Comments Not Currently 0 (1 standard drink = 0.6 oz pur e alcohol) PHQ-2 Answer Date Recorded Patient Health Questionnaire-2 Score 5 12/13/2024 Comments No Sex and Gender Information Value Date Recorded Sex Assigned at Female 11/09/2024 9:42 AM PARTS COUNTER ASSOCIATE Legal Sex Female 7:30 PM CDT Gender Identity Female 11/22/2024 10:25 AM PARTS COUNTER ASSOCIATE Sexual Orientation Straight 11/22/2024 10 :25 AM PARTS COUNTER ASSOCIATE documented as of this encounter Plan of Treatment Upcoming Encounters Date Type Department Care Team (Late st Contact Info) Description 07/04/2025 10:20 AM CDT [facility] [address] [place] [address] Sue Boyer NP [address] [place] [address] documented as of this encounter Visit Diagnoses Not on filedocumented in this encounter Additional Health Concerns Assessment Noted Time PHQ-9 Depression Total Score: 19 025 12:53 PM PARTS COUNTER ASSOCIATE documented as of this encounter Care Teams Bike Designer Relationship Specialty Start Date End Date Sue Boyer, HAND STONE POLISHER [address] [place] [address] PCP - General NURSE PRACTITIONER 05/10/24 documented as of this encounter
--- OUTSIDE RECORDS SUMMARY | 2025-04-30 11:04 | XMS_ITS | Encounter Summary ---
Author Organization [facility] Address [address] [place] [address] Care Team Providers Care Furs Salesperson Name Role Phone Sue Boyer NP Primary Care Provider [phone] Encounter Details Date Type Department Care Team (Late st Contact Info) Description 10/31/2024 MyChart Message Enc [facility] Medical [facility] [place] [address] [place] [address] Sue Boyer NP [address] [place] [address] Appt tomorrow Social History Tobacco Use Types Packs/Day Years Used Date Smoking Tobacco: Never Passive Smoke Exposure: Never Smokeless Tobacco: Never Alcohol Use Standard Drinks/Week Comments Not Currently 0 (1 standard drink = 0.6 oz pur e alcohol) PHQ-2 Answer Date Recorded Patient Health Questionnaire-2 Score 4 09/08/2024 Comments No Sex and Gender Information Value Date Recorded Sex Assigned at Female 11/09/2024 9:42 AM ARTISTS' MODEL Legal Sex Female 7:30 PM CDT Gender Identity Female 11/22/2024 10:25 AM ARTISTS' MODEL Sexual Orientation Straight 11/22/2024 10 :25 AM ARTISTS' MODEL documented as of this encounter Plan of Treatment Upcoming Encounters Date Type Department Care Team (Late st Contact Info) Description 07/04/2025 10:20 AM CDT Office Visit [facility] Medical [facility] [place] [address] [place] [address] Sue Boyer NP [address] [place] [address] documented as of this encounter Visit Diagnoses Not on filedocumented in this encounter Additional Health Concerns Assessment Noted Time PHQ-9 Depression Total Score: 17 024 11:07 AM ARTISTS' MODEL documented as of this encounter Care Teams Furs Salesperson Relationship Specialty Start Date End Date Sue Boyer, SAMPLE COORDINATOR [address] [facility] [address] [place] [address] PCP - General NURSE PRACTITIONER 05/10/24 documented as of this encounter
--- OUTSIDE RECORDS SUMMARY | 2025-04-30 11:04 | XMS_ITS | Clinical Summary ---
Author Organization [facility] Address [address] [place] [address] Care Team Providers Care Power Plant Assistant Name Role Phone Sue Boyer LOCAL COMPANY TRUCK DRIVER Primary Care Provider Allergies Active Allergy Reactions Criticality Noted Date Comments Lactose Other (see comment) Low 08/05/2019 Bloody stools Medications ondansetron (ZOFRAN-ODT) 4 MG disintegrating tabletIndications :Nausea Take 1 tablet (4 mg total) by mouth every 6 (six) hours as needed. 30 tablet 1 09/08/20 24 Active Blood Glucose Monitoring Suppl (ONE TOUCH ULTRA 2) w/Device KitIndications:An orexia,Hypoglycem ia Check blood sugar twice a day before meals. 1 kit 09/29/20 24 Active Glucose Blood test stripIndications: Anorexia,Hypoglyc emia Check blood sugar twice a day before meals. 300 strip 1 09/29/20 24 Active Lancets (ONETOUCH ULTRASOFT) lancetsIndication s:Anorexia,Hypogl ycemia Check blood sugar twice a day before meals. 100 each 1 09/29/20 24 Active triamcinolone (KENALOG) 0.1 % creamIndications: Rash Apply topically 2 (two) times daily as needed. For itching to left arm and right leg. 15 g 1 10/04/20 24 Active SYRINGE-NEEDLE, DISP, 3 ML (BD ECLIPSE SYRINGE) 25G X 1 3 ML MiscIndications:V itamin B deficiency Use one syringe every 30 days 20 each 3 10/06/20 24 Active docusate sodium (COLACE) 100 MG capsule Take 1 capsule (100 mg total) by mouth daily. 11/01/19 25 Active promethazine (PHENERGAN) 25 MG tabletIndications :Nausea Take 1 tablet (25 mg total) by mouth 3 (three) times daily as needed for Nausea. 90 tablet 1 02/17/20 25 Active vitamin D2, ergocalciferol, (DRISDOL) 1.25 mg capsule 04/20/20 24 025 Discontinued hydrOXYzine (ATARAX) 25 MG tabletIndications :Anxiety Take 1 tab by mouth at bedtime as needed for anxiety/inso mnia. 30 tablet 2 05/10/20 24 025 Discontinued cyanocobalamin (B-12) 1000 MCG/ML injection INJECT 1 ML IN THE MUSCLE EVERY 30 DAYS 09/09/20 025 Discontinued Hospital, Clinic, or Other Facility Administered Medication Ordered Dose Route Frequency Start Date End Date Status cyanocobalamin (B-12) injection 1,000 mcgIndications:B12 deficiency 1000 mcg IM Once 04/18/2025 04/18/2025 Ended Active Problems Problem Noted Date Diagnosed Date Anemia, unspecified type 04/18/2025 Major depressive disorder, recurrent episode, mo derate 12/14/2024 Insomnia, unspecified type 09/08/2024 Lactose intolerance 06/07/2024 Vitamin D deficiency 05/10/2024 B12 deficiency 05/10/2024 Iron deficiency anemia, unsp ecified iron deficiency anemia type 05/10/2024 Palpitations 05/10/2024 Anorexia 05/10/2024 Nausea 05/10/2024 Anxiety 05/10/2024 Resolved Problems Problem Noted Date Diagnosed Date Resolved Date Vegetarian diet 06/07/2024 06/14/2024 Encounters Date Type Department Care Team Description 04/18/2025 8:00 AM CDT [facility] [place] [address] [place] [address] Sue Boyer, LOCAL COMPANY TRUCK DRIVER Results 04/18/2025 Telephone [facility] [place] [address] [place] [address] Sue Boyer, LOCAL COMPANY TRUCK DRIVER Record Request 04/18/2025 Travel 04/13/2025 Results Follow-Up [place] [address] [address] [facility] [address] [place] [address] Sue Boyer, LOCAL COMPANY TRUCK DRIVER CBC W/DIFF AUTOMATED, FERRITIN, FOLIC ACID SERUM, Additional followed-up results: 2 04/12/2025 10:20 AM CDT Laboratory Only [place] [address] [address] [facility] [address] [place] [address] Sue Boyer, LOCAL COMPANY TRUCK DRIVER 04/12/2025 Telephone [place] [address] [address] [facility] [address] [place] [address] Sue Boyer, KENAN [facility] 04/12/2025 Travel 02/18/2025 2:40 PM CDT Office Visit [place] [address] [address] [place] [address] [address] [place] [address] Sue Boyer, KENAN Follow Up (6 week f/u from seeing specialist) 02/18/2025 Travel 02/16/2025 Telephone [place] [address] [address] [facility] [address] [place] [address] Sue Boyer, KENAN Information; Refill Request from Last 3 Months Immunizations Immunization Administration Dates Next Due Meningococcal (Menactra) 06/06/2019 Family History Medical History Relation Comments Diabetes Maternal Grandfather Heart Disease Maternal Grandfather Anemia Mother Relation Status Comments Maternal Grandfather Mother Social History Tobacco Use Types Packs/Day Years Used Date Smoking Tobacco: Never Passive Smoke Exposure: Never Smokeless Tobacco: Never Tobacco Cessation:Counseling Given: No Alcohol Use Standard Drinks/Week Comments Not Currently 0 (1 standard drink = 0.6 oz pur e alcohol) PHQ-2 Answer Date Recorded Patient Health Questionnaire-2 Score 5 12/13/2024 Comments No Sex and Gender Information Value Date Recorded Sex Assigned at Female 11/09/2024 9:42 AM PHOTOGRAPHIC EQUIPMENT ASSEMBLER Legal Sex Female 7:30 PM CDT Gender Identity Female 11/22/2024 10:25 AM PHOTOGRAPHIC EQUIPMENT ASSEMBLER Sexual Orientation Straight 11/22/2024 10 :25 AM PHOTOGRAPHIC EQUIPMENT ASSEMBLER Last Filed Vital Signs Vital Sign Reading Time Taken Comments Blood Pressure 109/77 04/18/2025 8:06 AM CDT Pulse 73 04/18/2025 8:06 AM CDT Temperature 36.4 C (97.6 F) 04/18/2025 8:06 AM CDT Respiratory Rate 15 04/18/2025 8:06 AM CDT Oxygen Saturation 100% 04/18/2025 8:06 AM CDT Inhaled Oxygen Concentration - - Weight 56.2 kg (123 lb 12.8 oz) 04/18/2025 8:06 AM CDT Height 167.6 cm (5' 6) 04/18/2025 8:06 AM CDT Body Mass Index 19.98 04/18/2025 8:06 AM CDT Plan of Treatment Upcoming Encounters Date Type Department Care Team (Late st Contact Info) Description 07/04/2025 10:20 AM CDT Office Visit [facility] Medical [facility] [place] [address] [place] [address] Sue Boyer, LOCAL COMPANY TRUCK DRIVER [address] [place] [address] Health Maintenance Due Date Last Done Comments Cervical Cancer Screening Pa p Smear (Age 21 to 29) Every 3 Years 2002 Cervical Cancer Screening 2002 Annual Physical 2005 HPV Vaccines (1 - 3-dose series) 2017 Meningococcal B Vaccine (1 o f 2 - Standard) 2018 DTaP, Tdap and Td Vaccines ( 1 - Tdap) 2021 Hepatitis B Vaccines (1 of 3 - 19+ 3-dose series) 2021 Pneumococcal Vaccine: Pediatrics (0 to 5 Years) and At-Risk Patients (6 to 49 Years) (1 of 2 - PCV) 2021 COVID-19 Vaccine (3 - 2023-2 5 season) 2024 07/05/2021, 06/14/2021 Meningococcal Vaccine Completed 06/06/2019 Hepatitis C Completed 05/10/2024 PHQ-2 (Physician [place]) Completed 12/13/2024 RSV Immunizations Under 20 Months Aged Out No longer eligible b ased on patient's age to complete this topic Procedures Procedure Name Priority Date/Time Associated Diagnosis Comments VITAMIN B-12 Routine 04/12/2025 11:32 AM CDT B12 deficiency IRON SAT PANEL (IRON,IBC,%SAT) Routine 04/12/2025 11:32 AM CDT Iron deficiency anemia, unspecified iron deficiency anemia type FOLIC ACID SERUM Routine 04/12/2025 11:3 2 AM CDT Iron deficiency anemia, unspecified iron deficiency anemia type FERRITIN Routine 04/12/2025 11:32 AM CDT Iron deficiency anemia, unspecified iron deficiency anemia type CBC W/DIFF AUTOMATED Routine 04/12/2025 11:32 AM CDT Iron deficiency anemia, unspecified iron deficiency anemia type HEPATITIS C ANTIBODY Routine 05/10/2024 11:41 AM CDT Need for hepatitis C screening test from Last 3 Months or Most Recently Relevant to Health Maintenance Results * IRON SAT PANEL (IRON,IBC,%SAT) (04/12/2025 11:32 AM CDT) Pathologist [facility] IRON 68 50 - 170 MCG/DL 04/13/2025 11:02 AM CDT [facility] IRON BINDING CAPACITY 250 250 - 450 MCG/DL 04/13/2025 11:02 AM CDT [facility] IRON SATURATION 27 % 11:02 AM CDT [facility] Comment:REFERENCE RANGE NOT ESTABLISHED 04/12/2025 11:3 2 AM CDT Sue Boyer NP LABORATORY Final Resul t [facility] [address] [place] [address], * (ABNORMAL) VITAMIN B-12 (04/12/2025 11:32 AM CDT) Pathologist [facility] VITAMIN B12 S/P/B 152(L) 193 - 986 PG/ML 04/12/2025 8:31 PM CDT [facility] 04/12/2025 11:3 2 AM CDT Sue Boyer NP LABORATORY Final Resul t Performing Organization Address [facility]/ZIP Co de Phone Number [facility] [address] [place] [phone], [place] [phone] * FOLIC ACID SERUM (04/12/2025 11:32 AM CDT) Pathologist [facility] FOLATE >20.0 8.6 - 58.9 NG/ML 04/12/2025 8:11 PM CDT [facility] 04/12/2025 11:3 2 AM CDT us Sue Boyer NP LABORATORY Final Resul t Performing Organization Address [facility] Co de Phone Number [address] [address], [place] [phone] * (ABNORMAL) CBC W/DIFF AUTOMATED (04/12/2025 11:32 AM CDT) Pathologist [facility] WBC 4.29 4.00 - 10.80 x10'3/uL 04/12/2025 8:20 PM CDT [facility] RBC 4.14 4.10 - 5.40 x10'6/uL 04/12/2025 8:20 PM CDT [facility] HGB 11.2(L) 12.0 - 16.0 G/DL 04/12/2025 8:20 PM CDT [facility] HCT 34.8(L) 36.0 - 47.0 % 04/12/2025 8:20 PM CDT [facility] MCV 84.1 78.0 - 100.0 FL 04/12/2025 8:20 PM CDT [facility] MCH 27.1 27.0 - 31.0 PG 04/12/2025 8:20 PM CDT [facility] MCHC 32.2(L) 33.0 - 36.0 G/DL 04/12/2025 8:20 PM CDT [facility] RDW 12.1 11.5 - 14.5 % 04/12/2025 8:20 PM CDT [facility] PLT 264 150 - 350 x10'3/uL 04/12/2025 8:20 PM CDT [facility] MPV 11.2(H) 7.4 - 10.4 FL 04/12/2025 8:20 PM CDT [facility] DIFFERENTIAL TYPE AUTOMATED DIFFERENTIAL 04/12/2025 8:20 PM CDT [facility] NEUTROPHILS % 45.9 % 04/12/2025 8:20 PM CDT [facility] LYMPHOCYTES % 40.8 % 04/12/2025 8:20 PM CDT [facility] MONOCYTES % 7.5 % 04/12/2025 8:20 PM CDT [facility] EOSINOPHILS % 4.2 % 04/12/2025 8:20 PM CDT [facility] BASOPHILS % 1.4 % 04/12/2025 8:20 PM CDT [facility] IMMATURE GRANS % 0.2 % 04/12/2025 8:20 PM CDT [facility] ABS. NEUTROPHILS 1.97 1.60 - 8.30 x10'3/uL 04/12/2025 8:20 PM CDT [facility] ABS. LYMPHOCYTES 1.75 0.80 - 4.70 x10'3/uL 04/12/2025 8:20 PM CDT [facility] ABS. MONOCYTES 0.32 0.00 - 1.50 x10'3/uL 04/12/2025 8:20 PM CDT [facility] ABS. EOSINOPHILS 0.18 0.00 - 0.40 x10'3/uL 04/12/2025 8:20 PM CDT [facility] ABS. BASOPHILS 0.06 0.00 - 0.20 x10'3/uL 04/12/2025 8:20 PM CDT [facility] ABS. IMMATURE GRANULOCYTES 0.01 0.00 - 0.03 x10'3/uL 04/12/2025 8:20 PM CDT [facility] 04/12/2025 11:3 2 AM CDT Sue Boyer NP LABORATORY Final Resul t Performing Organization Address City/[facility]/ZIP Co de Phone Number [address] [phone], * FERRITIN (04/12/2025 11:32 AM CDT) [facility] FERRITIN 70.0 8 - 252 NG/ML 04/13/2025 11:02 AM CDT [facility] 04/12/2025 11:3 2 AM CDT Sue Boyer NP LABORATORY Final Resul t Performing Organization Address City/[facility]/ZIP Co de Phone Number [address] [phone], * HEPATITIS C ANTIBODY (05/10/2024 11:41 AM CDT) Pathologist [facility] HEPATITIS C AB NON-REACTI VE NON-REACT JESSE 05/10/2024 9:[address] [facility] Comment: ANTIBODIES TO HCV NOT DETECTED. DOES NOT EXCLUDE THE POSSIBILITY OF EXPOSURE TO HCV. 05/10/2024 11:4 1 AM CDT Sue Boyer NP LABORATORY Final Resul t [facility] [address] [place] [address], [id number] from Last 3 Months or Most Recently Relevant to Health Maintenance Insurance [place] [id number] [facility] Care Teams Power Plant Assistant Relationship Specialty Start Date End Date Sue Boyer, KENAN [address] [place] [address] PCP - General NURSE PRACTITIONER 05/10/24
--- OUTSIDE RECORDS SUMMARY | 2025-04-30 11:04 | XMS_ITS | Referral Summary ---
Author Organization [facility] Address [address] [place] [phone] Care Team Providers Care Lacing String Cutter Name Role Phone Sue Boyer NP Primary Care Provider [phone] Encounters Date Type Department Care Team Description 04/30/2025 Telephone [facility] Medical [facility] [place] [address] [place] [phone] Shivani Edmondson MA 04/21/2025 11:30 AM CDT Office Visit [facility] Psychiatry [address] [place] [address] Floor [address] [place] [phone] Michelle Walls MD Mild restricting type anorexia nervosa (Primary Dx); Current moderate episode of major depressive disorder without prior episode (HCC) 03/24/2025 8:30 AM CDT Office Visit [facility] Psychiatry [address] [place] [address] Floor [address] [place] [phone] Michelle Walls MD Mild restricting type anorexia nervosa (Primary Dx); Unspecified mood disorder 02/11/2025 2:00 PM CDT Office Visit [facility] Psychiatry [address] [place] [address] [place] [phone] Michelle Walls MD Mild restricting type anorexia nervosa (Primary Dx); Unspecified mood disorder from Last 3 Months Allergies Active Allergy Reactions Criticality Noted Date [...] any questions about your care, call the [facility] at [phone] during business hours. 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 Abdominal pain, lower 04/14/2019 Overview (04/14/2019): Added automatically from request for surgery [id number] Diarrhea 04/14/2019 Overview (04/14/2019): Added automatically from request for surgery [id number] Blood in stool 04/14/2019 Overview (04/14/2019): Added automatically from request for surgery [id number] Social History Tobacco Use Types Packs/Day Years [...] on file Legal Sex Female 9:36 AM FULL STACK NET DEVELOPER Gender Identity Not on file Sexual Orientation Not on file Last Filed Vital Signs Vital Sign Reading Time Taken Comments Blood Pressure 127/90 04/21/2025 11:37 AM CDT Pulse 82 03/24/2025 9:02 AM CDT Temperature 37.4 C (99.3 F) 08/31/2024 12:45 PM FULL STACK NET DEVELOPER Respiratory Rate 15 08/31/2024 12:45 PM FULL STACK NET DEVELOPER Oxygen Saturation 99% 08/31/2024 12:45 PM FULL STACK NET DEVELOPER Inhaled Oxygen Concentration - - Weight 56 kg (123 lb 6.4 oz) 04/21/2025 11:37 AM CDT Height 165.1 cm (5' 5) 04/21/2025 11:37 AM CDT Body Mass Index 20.53 04/21/2025 11:37 AM CDT Plan of Treatment Not on file Procedures Procedure Name Priority Date/Time Associated Diagnosis Comments N. GONORRHOEAE/C. TRACHOMATIS AMPLIFICATION TEST Routine 04/13/2019 9:23 PM CDT from Last 3 Months or Most Recently Relevant to Health Maintenance Results * N. gonorrhoeae/C. trachomatis amplification test Urine (04/13/2019 9:23 PM CDT) Report Final Report: Negative for: Chlamydia trachomatis rRNA Negative for: Neisseria gonorrhoeae rRNA [facility] Comment:Testing performed by : [facility], [address] [facility], [place]., [address] Urine 04/13/2019 9:23 PM CDT 04/13/2019 10:59 PM CDT Narrative [facility] - 04/14/2019 12:58 PM CDT Testing performed by the [employer] Combo 2 Assay. This nucleic acid amplification test (NAAT) detects ribosomal RNA (rRNA) from Chlamydia trachomatis and Neisseria gonorrhoeae using target capture,and Senior Insight Manager-Mediated Amplification (TMA). This test is approved by the [place] Food and Drug Administration for endocervical, vaginal, and male urethral swab specimens, in addition to male and female urine specimens. The performance characteristics for these specimen types have been verified by the [facility].The performance characteristics of this assay for pharyngeal and rectal specimens collected from cervical swab collection devices have been validated and verified by the [facility]. Verification studies support a lack [...] LAB MICROBIOLOGY - GENERAL ORDERABLES Final Result [facility] Department [place] [address] from Last 3 Months or Most Recently Relevant to Health [place] [address] [place] [id number] [facility] CHOICE PLUS [facility] CHOICE PLUS [place] [id number] [facility] CHOICE PLUS [facility] Advance Directives For more information, please contact: [phone] * Full Code (Latest Code Status on File) Date Activated Date Inactivated Comments 04/13/2019 7:20 PM 04/14/2019 9:49 PM Care Teams Lacing String Cutter Relationship Specialty Start Date End Date Sue Boyer NP [address] [facility] [address] [place] [address] PCP - General Internal Medicine 11/02/24
--- OUTSIDE RECORDS SUMMARY | 2025-04-30 11:04 | XMS_ITS | Encounter Summary ---
Author Organization [facility] Address [address] [place] [address] Care Team Providers Care Bsw Name Role Phone Sue Boyer FOOD TRAY ASSEMBLER Primary Care Provider [phone] Encounter Details Date Type Department Care Team (Late st Contact Info) Description 11/05/2024 Planet Dailyhart Message Enc [facility] Medical Group [facility] - [place] [address] [place] [address] Sue Boyer NP [address] [place] [address] [facility] clinic Social History Tobacco Use Types Packs/Day Years Used Date Smoking Tobacco: Never Passive Smoke Exposure: Never Smokeless Tobacco: Never Alcohol Use Standard Drinks/Week Comments Not Currently 0 (1 standard drink = 0.6 oz pur e alcohol) PHQ-2 Answer Date Recorded Patient Health Questionnaire-2 Score 6 11/08/2024 Comments No Sex and Gender Information Value Date Recorded Sex Assigned at Female 11/09/2024 9:42 AM ASSEMBLY TECHNICIAN Legal Sex Female 7:30 PM CDT Gender Identity Female 11/22/2024 10:25 AM ASSEMBLY TECHNICIAN Sexual Orientation Straight 11/22/2024 10 :25 AM ASSEMBLY TECHNICIAN documented as of this encounter Functional Status * Over the past 2 weeks, how often have you been bothered by any of the following problems? Question Answer Date of Assessment Author Status Little interest or pleasure in doing things Nearly every day 11/08/2024 12:03 PM Aleyda Hearn MA Active Feeling down, depressed, or hopeless Nearly every day 11/08/2024 12:03 PM Aleyda Hearn MA Active Patient Health Questionnaire-2 Score 6 11/08/2024 12:03 PM Aleyda Hearn MA Active * Question Answer Date of Assessment Author Status Trouble falling or staying asleep, or sleeping too much Nearly every day 11/08/2024 12:03 PM Aleyda Hearn MA Active Feeling tired or having little energy Nearly every day 11/08/2024 12:03 PM Aleyda Hearn MA Active Poor appetite or overeating Nearly every day 11/08/2024 12:03 PM Aleyda Hearn MA Active Feeling bad about yourself - or that you are a failure or have let yourself or your family down Nearly every day 11/08/2024 12:03 PM Aleyda Hearn MA Active Trouble concentrating on things, such as reading the newspaper or watching television More than half the days 11/08/2024 12:03 PM Aleyda Hearn MA Active Moving or speaking so slowly that other people could have noticed? Or the opposite - being so fidgety or restless that you have been moving around a lot more than usual. Several days 11/08/2024 12:03 PM Aleyda Hearn MA Active Thoughts that you would be better off or hurting yourself in some way Several days 11/08/2024 12:03 PM Aleyda Hearn MA Active Patient Health Questionnaire-9 Score 22 11/08/2024 12:03 PM Aleyda Hearn MA Active * If you checked off any problems on this questionnaire so far, Question Answer Date of Assessment Author Status How difficult have these problems made it for you to do your work, take care of things at home, or get along with other people? Extremely difficult 11/08/2024 12:03 PM Aleyda Hearn MA Active * Over the last 2 weeks, how often have you been bothered by any of the following problems? Question Answer Date of Assessment Author Status Feeling nervous, anxious, or on edge 3 11/08/2024 12:03 PM Aleyda Hearn MA Act albina Not being able to stop or control worrying 3 11/08/2024 12:03 PM ASSEMBLY TECHNICIAN Aleyda Hensley MA Ac tive Worrying too much about different things 3 11/08/2024 12:03 PM Aleyda Hearn MA Ac tive Trouble relaxing 3 11/08/2024 12:03 PM Aleyda Hearn MA Active Being so restless that it is hard to sit still 2 11/08/2024 12:03 PM Aleyda Hearn M A Active Becoming easily annoyed or irritable 3 11/08/2024 12:03 PM Aleyda Hearn MA Act albina Feeling afraid as if something awful might happen 2 11/08/2024 12:03 PM Aleyda Hearn MA Act albina RITIKA-7 Total Score 19 11/08/2024 12:03 PM Aleyda Hearn MA Active documented as of this encounter Plan of Treatment Upcoming Encounters Date Type Department Care Team (Late st Contact Info) Description 07/04/2025 10:20 AM CDT Office Visit [facility] Medical Group [facility] - [place] [address] [place] [address] Sue Boyer NP [address] [place] [address] documented as of this encounter Visit Diagnoses Not on filedocumented in this encounter Additional Health Concerns Assessment Noted Time PHQ-9 Depression Total Score: 17 024 11:07 AM ASSEMBLY TECHNICIAN documented as of this encounter Care Teams Bsw Relationship Specialty Start Date End Date Sue Boyer NP [address] [place] [address] PCP - General NURSE PRACTITIONER 05/10/24 documented as of this encounter
--- OUTSIDE RECORDS SUMMARY | 2025-04-30 11:04 | XMS_ITS | Encounter Summary ---
Author Organization [facility] Address [address] [place] [address] Care Team Providers Care Content Strategist Name Role Phone Sue Boyer NP Primary Care Provider [phone] Encounter Details Date Type Department Care Team (Late st Contact Info) Description 10/13/2024 Voxxterhart Message Enc [facility] [place] [address] [place] [address] Sue Boyer NP [address] [place] [address] inpatient options Social History Tobacco Use Types Packs/Day Years Used Date Smoking Tobacco: Never Passive Smoke Exposure: Never Smokeless Tobacco: Never Alcohol Use Standard Drinks/Week Comments Not Currently 0 (1 standard drink = 0.6 oz pur e alcohol) PHQ-2 Answer Date Recorded Patient Health Questionnaire-2 Score 4 09/08/2024 Comments No Sex and Gender Information Value Date Recorded Sex Assigned at Female 11/09/2024 9:42 AM MANAGER PLANNING Legal Sex Female 7:30 PM CDT Gender Identity Female 11/22/2024 10:25 AM MANAGER PLANNING Sexual Orientation Straight 11/22/2024 10 :25 AM MANAGER PLANNING documented as of this encounter Plan of Treatment Upcoming Encounters Date Type Department Care Team (Late st Contact Info) Description 07/04/2025 10:20 AM CDT Office Visit [facility] [place] [address] [place] [address] Sue Boyer NP [address] [place] [address] documented as of this encounter Visit Diagnoses Not on filedocumented in this encounter Additional Health Concerns Assessment Noted Time PHQ-9 Depression Total Score: 17 024 11:07 AM MANAGER PLANNING documented as of this encounter Care Teams Content Strategist Relationship Specialty Start Date End Date Sue Boyer, SUPPLY CATALOGUER [address] [place] [address] PCP - General NURSE PRACTITIONER 05/10/24 documented as of this encounter
--- OUTSIDE RECORDS SUMMARY | 2025-04-30 11:04 | XMS_ITS | Encounter Summary ---
Author Organization [facility] Address [address] [place] [id number] Care Team Providers Care An/Sqq 89(V)15 Sonar System Journeyman Name Role Phone Sue Boyer NP Primary Care Provider [phone] Encounter Details Date Type Department Care Team (Late st Contact Info) Description 11/01/2024 MyChart Message Enc [facility] [place] [address] [place] [address] Sue Boyer NP [address] [place] [address] follow up Social History Tobacco Use Types Packs/Day Years Used Date Smoking Tobacco: Never Passive Smoke Exposure: Never Smokeless Tobacco: Never Alcohol Use Standard Drinks/Week Comments Not Currently 0 (1 standard drink = 0.6 oz pur e alcohol) PHQ-2 Answer Date Recorded Patient Health Questionnaire-2 Score 4 09/08/2024 Comments No Sex and Gender Information Value Date Recorded Sex Assigned at Female 11/09/2024 9:42 AM FAMILY CENTERED SPECIALIST Legal Sex Female 7:30 PM CDT Gender Identity Female 11/22/2024 10:25 AM FAMILY CENTERED SPECIALIST Sexual Orientation Straight 11/22/2024 10 :25 AM FAMILY CENTERED SPECIALIST documented as of this encounter Plan of Treatment Upcoming Encounters Date Type Department Care Team (Late st Contact Info) Description 07/04/2025 10:20 AM CDT Office Visit [facility] [place] [address] [place] [address] Sue Boyer NP [address] [place] [address] documented as of this encounter Visit Diagnoses Not on filedocumented in this encounter Additional Health Concerns Assessment Noted Time PHQ-9 Depression Total Score: 17 024 11:07 AM FAMILY CENTERED SPECIALIST documented as of this encounter Care Teams An/Sqq 89(V)15 Sonar System Journeyman Relationship Specialty Start Date End Date Sue Boyer, FRIT MAKER [address] [facility] [address] [place] [address] PCP - General NURSE PRACTITIONER 05/10/24 documented as of this encounter
[2025-04-30 11:10] VITALS: BP 120/74; PULSE 97; RESP 16; TEMP 37.3; O2SAT 100
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
== END 2025-04-30 12:00 | disposition home or self-care (01) ==
PROVIDERS: Emergency Provider Nurse Practitioner Family; PCP Nurse Practitioner
DX: S90.32XA Contusion of left foot, initial encounter (principal); X58.XXXA Exposure to other specified factors, initial encounter
CPT/HCPCS: 73630; 99213; G0463